=== PATIENT | male | born 1990 | race Caucasian/White ===

== ENCOUNTER 2019-01-26 12:26 | Emergency (ER) | payer BC ==
[~2019-01-26] VITALS: Ht 165.1 cm; Wt 106.0 kg
[~2019-01-26 12:26] MED LIST: METO10TA92 PO; NAPR-985 PO; ONDA4TAB14 PO; TAMS-14 PO; TRAM50TA2 PO
[2019-01-26 12:30] VITALS: BP 143/98; PULSE 98; RESP 20; Ht 165.1 cm; Wt 106.0 kg
[2019-01-26] MEDS ORDERED: KETOROLAC 15 MG INJ IM STA (13:03)
[2019-01-26] MEDS ORDERED: METOCLOPRAMIDE 10 MG TAB PO ONE (13:30)
--- NOTE | 2019-01-26 19:35 | ERD ---
ER Documentation Chief Complaint Chief Complaint c/o vomiting after started on meds, was here recently for kidney stones HPI 28yo M presents to the ED with complaint of nausea and vomiting x 1 day. Pt notes last episode of vomiting yesterday. He presented to the ED 1 day ago where he was diagnosed with kidney stones and started on Naproxen, flomax, and zofran. He notes nausea and vomiting started after he began taking his medications, and notes to be taking the naproxen on an empty stomach. He states to have tolerated PO intake prior to arrival without vomiting. ROS All systems reviewed and are negative except as per history of present illness. Medications Home Meds Active Scripts Tramadol HCl (Tramadol HCl) 50 Mg Tablet, 50 MG PO Q6, #8 TAB Prov:DAWNA BORRERO PA-C 01/26/19 Metoclopramide* (Reglan*) 10 Mg Tablet, 10 MG PO Q6 PRN for NAUSEA AND/OR VOMITING, #10 TAB Prov:DAWNA BORRERO PA-C 01/26/19 Ondansetron (Ondansetron Odt) 4 Mg Tab.rapdis, 4 MG PO Q6H PRN for NAUSEA AND/OR VOMITING, #10 TAB Prov:ISACC ROSALES PA-C 01/25/19 Naproxen* (Naprosyn*) 500 Mg Tablet, 500 MG PO BID PRN for PAIN AND/OR INFLAMMATION, #30 TAB Prov:ISACC ROSALES PA-C 01/25/19 Tamsulosin Hcl* (Flomax*) 0.4 Mg Cap.er.24h, 0.4 MG PO QPM, #30 CAP Prov:ISACC ROSALES PA-C 01/25/19 Allergies Allergies: Coded Allergies: No Known Drug Allergies (Verified Allergy, Unknown, 01/26/19) PMhx/Soc Hx Miscellaneous Medical Probl: Yes (KIDNEY STONE) Hx Alcohol Use: Yes Hx Substance Use: No Hx Tobacco Use: No Physical Exam Vitals Vital Signs Date Temp Pulse Resp B/P (MAP) Pulse Ox O2 O2 Flow FiO2 Time Delivery Rate 01/26/19 99.1 98 20 143/98 95 12:30 (113) Physical Exam Constitutional: Well developed. Well nourished. No acute distress Head/Eyes: Atraumatic. Normocephalic. PERRL. EOMI ENT: Moist mucous membranes. Voice normal. Neck: Supple. No lymphadenopathy Cardiovascular: Regular rate and rhythm. No murmurs, rubs, or gallops. Distal pulses intact Respiratory: No respiratory distress. Normal breath sounds. No wheezes, rales, or rhonchi. Abdominal: Soft. Non-tender. No guarding, rebound, or rigidity. Non-distended. No CVA tenderness. Extremities: No edema, Full ROM Skin: Dry. No rashes. Warm Neurological: Alert and oriented X 3. Normal speech Psychiatric: Normal mood. Normal affect Results 24 hrs Current Medications Medications Dose Sig/Lavell Start Time Status Last (Trade) Ordered Route PRN Stop Time Admin Dose Reason Admin Ketorolac 15 mg ONCE STAT 01/26/19 DC 01/26/19 Tromethamine IM 13:03 13:13 (Toradol) 01/26/19 13:05 10 mg ONCE ONCE 01/26/19 DC 01/26/19 Metoclopramid PO 13:30 13:13 e HCl 01/26/19 13:31 (Reglan) Procedures/MDM MDM: This is a 28yo M recently diagnosed with kidney stones who presents to the ED with nausea, which he believes is due to his currently prescribed medication. I have reviewed labs and imaging performed at his previous visit. Pt had a mildly elevated white count of 13, but otherwise labs unremarkable. Pt given IM toradol for pain and PO reglan for nausea. Pt tolerated PO challenge. Given unremarkable abdominal exam, I do not believe his symptoms are due to an acute abdomen and at this time I doubt appendicitis, cholecystitis, or other GI emergent process. I believe nausea likely d/t pain and/or consuming medications on an empty stomach. I have provided a short course of Tramadol for pain after consulting pt [facility] which was negative for any recent narcotic prescriptions. I do not believe pt is at risk for opioid overdose at this time, but i have advised him to take the least amount for the shortest duration for acute pain only. Pt also given rx for reglan as he was able to tolerate PO intake after taking the medication. I have counseled the pt regarding strict ED return precautions and have advised to him to return within 8hrs for f/u if symptoms persist or worsen. At this time patient is stable for outpatient management and will be discharged home. Pt expressed verbal understanding and agreement to treatment plan. All questions addressed and answered. Departure Diagnosis: Primary Impression: Nausea Condition: Stable Patient Instructions: Nausea Additional Instructions: You were seen today for nausea related to medication use. Please take reglan as prescribed for nausea. Tramadol has also been prescribed for your pain, given recent diagnosis of kidney stones. This medication is meant to be used for acute pain, and it is recommended you take the least amount necessary to acheive pain control as well as continue with the naproxen as previously prescribed. DAWNA BORRERO PA-C Jan 26, 2019 19:35
== END 2019-01-26 14:36 | disposition home or self-care (01) ==
LOC: FTE 12:26
DX: R11.0 Nausea (principal)
CPT/HCPCS: 96372; 99284; J1885